=== PATIENT | female | born 1965 | race Caucasian/White ===

== ENCOUNTER 2017-01-23 17:30 | Emergency (ER) | payer OTHER ==
[~2017-01-23] VITALS: Ht 160 cm; Wt 63.5 kg
[2017-01-23] MEDS ORDERED: IBUP-1955 PO (18:13)
[2017-01-23] MEDS ORDERED: OMEP20CA4 PO (18:13)
--- NOTE | 2017-01-23 19:00 | NUR ---
CARE ENDORSED BY DAYSHIFT NURSE, PT RESTING IN BED, ALERT, ORIENTED X 4, NO RESP DISTRESS NOTED OR REPORTED UPON ASSESSMENT... WILL CONTINUE TO MONITOR FOR SAFETY, PAIN AND COMFORT...
--- NOTE | 2017-01-23 20:15 | NUR ---
AUTOMOBILE PAINTER TO TAKE PT FOR SCAN...
[2017-01-23 20:16] LABS: BASOPHILS # (AUTO) 0.1 K/uL (0.0-8.0); BASOPHILS % (AUTO) 0.7 % (0.0-2.0); EOSINOPHILS # (AUTO) 0.3 K/uL (0.0-0.7); EOSINOPHILS % (AUTO) 2.7 % (0.0-7.0); HEMATOCRIT 37.4 % (37-47); HEMOGLOBIN 12.8 G/DL (12.0-16.0); LYMPHOCYTES % (AUTO) 30.8 % (20.5-51.5); MEAN CORPUSCULAR HEMOGLOBIN 29.1 UUG (27.0-31.0); MEAN CORPUSCULAR HGB CONC 34 g/dL (32.0-37.0); MEAN CORPUSCULAR VOLUME 85.1 FL (81.0-99.0); MONOCYTES # (AUTO) 0.8 K/uL (2.0-10.0); MONOCYTES % (AUTO) 7.8 % (0.0-11.0); NEUTROPHILS # (AUTO) 5.4 K/uL (1.8-8.9); PLATELET COUNT (AUTO) 323 K/UL (150-450); RED CELL DISTRIBUTION WIDTH 12.3 % (11.5-14.5); WHITE BLOOD COUNT (AUTO) 9.6 K/UL (4.0-11.2)
[2017-01-23 20:21] LABS: CALCIUM 9.3 mg/dL (8.5-10.1); CREATININE 0.6 mg/dL (0.6-1.3)
[2017-01-23 20:27] LABS: ALBUMIN 3.8 g/dL (3.4-5.0); BILIRUBIN,DIRECT 0.1 mg/dL (0.0-0.2); BILIRUBIN,TOTAL 0.5 mg/dL (0.2-1.0); TOTAL PROTEIN, SERUM 7.6 g/dL (6.4-8.2)
--- NOTE | 2017-01-23 20:27 | NUR ---
PT RETURNED FROM CT SCAN VIA WHEELCHAIR, PT ALERT, ORIENTED X 4, NO RESP DISTRESS NOTED OR REPORTED UPON ASSESSMENT...
--- NOTE | 2017-01-23 21:50 | NUR ---
Patient discharged to home in stable conditon. Written and verbal after care instructions given. Patient verbalizes understanding of instructions. pt walked out of ER unassisted with belognings at side....
[2017-01-23 22:19] VITALS: BP 131/97
== END 2017-01-23 22:21 | disposition home or self-care (01) ==
LOC: ER 17:30
DX: R07.89 Other chest pain (principal); M54.2 Cervicalgia; M54.6 Pain in thoracic spine; F32.9 Major depressive disorder, single episode, unspecified; K21.9 Gastro-esophageal reflux disease without esophagitis
CPT/HCPCS: 36415; 70030-TC; 71010; 72072; 85025; 85730; 93005; A4663

== ENCOUNTER 2018-01-13 22:12 | Emergency (ER) | payer OTHER ==
[~2018-01-13] VITALS: Ht 160 cm; Wt 67.1 kg
[~2018-01-13 22:12] MED LIST: IBUP-1955 PO; OMEP20CA4 PO
[2018-01-13 23:02] LABS: BASOPHILS # (AUTO) 0.1 K/uL (0.0-8.0); BASOPHILS % (AUTO) 0.7 % (0.0-2.0); EOSINOPHILS # (AUTO) 0.2 K/uL (0.0-0.7); EOSINOPHILS % (AUTO) 2.5 % (0.0-7.0); HEMATOCRIT 37.4 % (31.2-41.9); HEMOGLOBIN 12.8 g/dL (10.9-14.3); LYMPHOCYTES # (AUTO) 3.8 K/uL (20.0-40.0); LYMPHOCYTES % (AUTO) 42.9 % (20.5-51.5); MEAN CORPUSCULAR HEMOGLOBIN 29.3 uug (24.7-32.8); MEAN CORPUSCULAR HGB CONC 34 g/dL (32.3-35.6); MEAN CORPUSCULAR VOLUME 85.7 fL (75.5-95.3); MONOCYTES # (AUTO) 0.7 K/uL (2.0-10.0); MONOCYTES % (AUTO) 7.4 % (0.0-11.0); NEUTROPHILS # (AUTO) 4.1 K/uL (1.8-8.9); NEUTROPHILS % (AUTO) 46.5 % (38.5-71.5); PLATELET COUNT (AUTO) 319 K/uL (179-408); RED BLOOD CELL COUNT(AUTO) 4.37 MIL/uL (3.63-4.92); WHITE BLOOD COUNT (AUTO) 8.9 K/uL (3.8-11.8)
--- NOTE | 2018-01-13 23:09 | NUR ---
PT IN BED. PT IS RESTING WITH EYES CLOSED. VSS. BREATH SOUNDS EVEN AND UNLABORED. BED IN LOWEST POSITION WITH BEDRAILS UP.
--- NOTE | 2018-01-13 23:20 | NUR ---
PT OFFERED HOT PACK FOR NECK
[2018-01-13 23:23] LABS: BILIRUBIN,DIRECT 0.1 mg/dL (0.0-0.2); BILIRUBIN,TOTAL 0.4 mg/dL (0.2-1.0); CREATININE 0.7 mg/dL (0.6-1.3); POTASSIUM 3.8 mmol/L (3.5-5.1); TOTAL PROTEIN, SERUM 7.7 g/dL (6.4-8.2)
--- NOTE | 2018-01-14 00:10 | NUR ---
Patient discharged to home in stable conditon. Written and verbal after care instructions given. Patient verbalizes understanding of instructions. Patient able to ambulate unassisted with steady gait. Patient left with all personal belongings.
[2018-01-14 00:24] VITALS: BP 118/74
== END 2018-01-14 00:10 | disposition home or self-care (01) ==
LOC: ER 22:13
DX: G89.29 Other chronic pain (principal); M54.2 Cervicalgia; M54.9 Dorsalgia, unspecified; K21.9 Gastro-esophageal reflux disease without esophagitis; Z90.89 Acquired absence of other organs; Z79.1 Long term (current) use of non-steroidal anti-inflammatories (NSAID); Z79.899 Other long term (current) drug therapy
CPT/HCPCS: 36415; 80048; 80076; 83880; 84484; 85025; 85379; 85651; 85730; 93005; 99285; A4663; 70030-TC

== ENCOUNTER 2025-09-05 18:29 | Emergency (ER) | payer OTHER ==
[~2025-09-05] VITALS: Ht 160 cm; Wt 69.4 kg
[2025-09-05 18:29] VITALS: BP 105/59
[~2025-09-05 18:29] MED LIST changes: -IBUP-1955 PO; +IBUP-2760 PO
[2025-09-05] MEDS ORDERED: ONDANSETRON ODT 4 MG TAB.RAPDIS ONE (19:47)
[2025-09-05] MEDS ORDERED: HYDROMORPHONE 2 MG/1 ML DISP.SYRIN ONE (19:48)
[2025-09-05] MEDS: ONDANSETRON ODT 4 MG TAB.RAPDIS SL ONE (20:12)
[2025-09-05] MEDS: HYDROMORPHONE 1 MG/1 ML DISP.SYRIN IM ONE (20:12)
[2025-09-05 20:27] VITALS: BP 105/59; O2SAT 97
== END 2025-09-05 20:28 | disposition home or self-care (01) ==
LOC: ER 18:40
DX: M54.50 Low back pain, unspecified (principal); M54.9 Dorsalgia, unspecified; I51.9 Heart disease, unspecified; E78.00 Pure hypercholesterolemia, unspecified; G89.29 Other chronic pain; J45.909 Unspecified asthma, uncomplicated; Z79.899 Other long term (current) drug therapy; Z85.850 Personal history of malignant neoplasm of thyroid; X58.XXXA Exposure to other specified factors, initial encounter; Y93.89 Activity, other specified; Y92.89 Other specified places as the place of occurrence of the external cause; Y99.9 Unspecified external cause status
CPT/HCPCS: 99283; 96372; J1171; A4606; A4663; Q0162